=== PATIENT | male | born 1985 | race Two or more races ===

== ENCOUNTER 2024-08-29 08:14 | Outpatient (CLI) | payer OTHER ==
[2024-08-29 09:19] LABS: HEMATOCRIT 44.3 % (39.0-48.0); HEMOGLOBIN 15.5 g/dL (13-16.00); MEAN CELL VOLUME 93.4 fL (80.0-100.00); MEAN CORPUSCULAR HEMOGLOBIN 32.6 pg (27.00-32.0); MEAN CORPUSCULAR HGB CONC 34.9 g/dl (32.0-36.0); PLATELET COUNT 209 K/uL (150-450); RED BLOOD COUNT 4.75 M/uL (4.00-6.00); RED CELL DISTRIBUTION WIDTH 12.9 % (11.5-14.5)
[2024-08-29 09:25] LABS: PH,URINE 5.5 (5.0-8.0); URINE APPEARANCE Clear; URINE BILIRRUBIN Negative (NEGATIVE); URINE BLOOD Negative; URINE COLOR Yellow; URINE GLUCOSE Negative (NEGATIVE); URINE KETONE Negative (NEGATIVE); URINE LEUKOCYTE Negative; URINE NITRATE Negative; URINE PROTEIN Negative (NEGATIVE); URINE UROBILINOGEN 0.2 E.U./dl
[2024-08-29 09:30] LABS: URINE BACTERIA 6.2 uL (0.0-1933); URINE RBC 3.2 uL (0.0-20.8)
[2024-08-29 09:53] LABS: URINE EPITHELIAL CELLS 0.3 uL (0.0-38.8); URINE WBC 1.3 uL (0.0-23.2)
[2024-08-29 10:13] LABS: ALBUMIN 3.9 gm/dL (3.4-5.0); BILIRUBIN TOTAL 0.29 mg/dL (0.3-1.2); CALCIUM 8.6 mg/dL (8.5-10.1); CHOL HDL RATIO 5.7 (0-5.0); CREATININE SERUM 0.88 mg/dL (0.70-1.30); GFR 95.91; GLOBULINA 3.2 G/DL (2.4-3.5); POTASSIUM 4.25 mEq/L (3.5-5.1); PROSTATIC SPECIFIC ANTIGEN 1.92 NG/ML (0.010-4.00); TOTAL PROTEIN 7.1 gm/dL (6.4-8.2); TSH 1.58 uIU/mL (0.358-3.74)
== END 2024-08-29 08:19 | disposition home or self-care (01) ==
LOC: LAB 08:14
PROVIDERS: ATTEND General Practice
DX: J31.0 Chronic rhinitis (principal); R79.89 Other specified abnormal findings of blood chemistry; Z12.9 Encounter for screening for malignant neoplasm, site unspecified